=== PATIENT | male | born 1960 ===

== ENCOUNTER 2023-04-26 08:41 | Outpatient (AMB) | payer OTHER, SELFPAY ==
--- NOTE | 2023-04-26 09:06 | A.SPINEOV_ITS ---
Intake Intake Visit Reasons: replace battery of stimulator Intake Note: Mr. Haddad is here today to discuss SCS battey replacement. MRI done @ [facility] Med/brought disc. Assessment Counselor Required: No Assessment & Plan Assessment & Plan (1) Back pain: Code(s): M54.9 - Dorsalgia, unspecified Plan Mr Haddad is a 62-year-old gentleman with a history of 3 back surgeries, 2 neck surgeries and a spinal cord stimulator that was placed by [employer] in [facility] 15 years ago. He would get great relief from it but the battery started to wear out. It is no longer holding a charge it he is interested in having the battery replaced. He has chronic low back pain and that is his indication for the device. PMH: He has history of hypertension, high cholesterol, his back and neck surgeries but otherwise denies any history of heart attack, stroke, bleeding disorders, kidney disorders, infections etc. Social hx: He does not smoke Medications: Baby aspirin, lisinopril, losartan, Crestor Allergies: None Physical exam: He is awake alert oriented, normal gait and strength in the lower extremities, he has a spinal cord stimulator device in the right side of his low back next to his old incisions. It is well healed. Imaging review: CT scan done at [facility] of the lumbar spine shows his spinal cord stimulator as well as a solid fusion in the lower lumbar region with what looks like some adjacent segment disease above Impression: 62-year-old gentleman presents for evaluation and consideration of spinal cord stimulator battery replacement. He has chronic low back pain and the device works very well for him but it is losing its charge and he is unable to get much benefit out of it. When it is working it covers his back pain very well so he wants to have it replaced. I have tentatively put him on the books for June 20. We can do the surgery with some light sedation and local. The [employer] parts counter representative was here for the visit today with us and will coordinate to be in the operating room with us. I will update Dr. Lomeli. Thank you for allowing us to care for your patient. The total time spent with this visit with this patient was 45 minutes reviewing history, physical exam, CT scan imaging review, and implementation of treatment plan or further diagnostic testing Tao Lomeli MD,PhD [facility] Coding Level of Care Code New Pt Level 4 (40433) Diagnoses Back pain M54.9
== END 2023-04-26 09:32 | disposition home or self-care (01) ==
PROVIDERS: PCP Internal Medicine; Visit Provider Physician Assistant
DX: M54.9 Dorsalgia, unspecified (principal)
CPT/HCPCS: 99204

== ENCOUNTER → 2023-04-26 08:41 | Outpatient (BNVA) | payer OTHER, SELFPAY | PROVIDERS: PCP Internal Medicine; Visit Provider Physician Assistant ==

== ENCOUNTER 2023-06-20 06:04 | Day surgery (SDC) | payer OTHER, SELFPAY ==
[2023-06-18 07:24] VITALS: BMI 31.3
--- NOTE | 2023-06-19 09:03 | HO.ANESPROP2 ---
Documented by User: Monik Sykes NP 06/19/23 09:04 HPI - Anesthesia Eval Consult details Narrative: 62yo M for Spinal Stimulation Generator Change PMFSH Active Problems Active Problems: All Active Problems (Updated 06/18/23 @ 07:22 by Beverley Benton RN) Back pain (Acute) Past Medical History Medical History Carpal tunnel syndrome Trigger middle finger Obesity, Class I, BMI 30.0-34.9 (see actual BMI) Hyperlipidemia HTN (hypertension) Allergic rhinitis Acute sinusitis Deviated nasal septum Surgical History Surgical History Hx of spinal surgery Hx of cervical spine surgery Social History Social History Patient Tobacco Use Status: Never used Tobacco Use of substances other than those prescribed or required for medical reasons: No Are you DNR?: No Advance Directives: No Advance Directives Information Provided: Yes Meds Allergies Allergy/AdvReac Type Severity Reaction Status Date / Time cat dander Allergy Unknown Verified 06/20/23 06:12 mite-Dermatophagoides Allergy Runny Nose Verified 06/20/23 06:12 pteronyssinus [dust mite - ] ragweed pollen Allergy Unknown Verified 06/20/23 06:12 Home Medications Medication Instructions Recorded Confirmed Last Taken Type losartan 50 mg-hydrochlorothiazide 1 tab PO DAILY 06/18/23 06/20/23 06/19/23 History 12.5 mg tablet sildenafil 25 mg tablet 25 mg PO DAILY PRN Sexual Activity 06/18/23 06/18/23 Unknown History simvastatin 20 mg tablet 20 mg PO BEDTIME 06/18/23 06/20/23 06/19/23 History triamcinolone acetonide 0.1 % 1 appl topical BID 06/18/23 06/18/23 Unknown History topical cream Exam Height,Weight and Vital Signs: Height 5 ft 6.93 in Weight 90.6 kg Assessment and Plan Assessment Anesthesia Assessment: Chart Reviewed Documented by User: Jg May MD 06/20/23 08:07 [facility] Past Medical History Medical History Carpal tunnel syndrome Trigger middle finger Obesity, Class I, BMI 30.0-34.9 (see actual BMI) Hyperlipidemia HTN (hypertension) Allergic rhinitis Acute sinusitis Deviated nasal septum Family History Family history of problems with anesthesia: No Surgical History Surgical History Hx of spinal surgery Hx of cervical spine surgery History of Problems with Anesthesia: No Social History Social History Patient Tobacco Use Status: Never used Tobacco Use of substances other than those prescribed or required for medical reasons: No Are you DNR?: No Advance Directives: No Advance Directives Information Provided: Yes Meds Allergies Allergy/AdvReac Type Severity Reaction Status Date / Time cat dander Allergy Unknown Verified 06/20/23 06:12 mite-Dermatophagoides Allergy Runny Nose Verified 06/20/23 06:12 pteronyssinus [dust mite - ] ragweed pollen Allergy Unknown Verified 06/20/23 06:12 Home Medications Medication Instructions Recorded Confirmed Last Taken Type losartan 50 mg-hydrochlorothiazide 1 tab PO DAILY 06/18/23 06/20/23 06/19/23 History 12.5 mg tablet sildenafil 25 mg tablet 25 mg PO DAILY PRN Sexual Activity 06/18/23 06/18/23 Unknown History simvastatin 20 mg tablet 20 mg PO BEDTIME 06/18/23 06/20/23 06/19/23 History triamcinolone acetonide 0.1 % 1 appl topical BID 06/18/23 06/18/23 Unknown History topical cream Exam Airway Mallampati Class: II TM Dist: >3cm Loose/Missing/Broken Teeth: Yes Assessment and Plan Assessment Anesthesia Assessment: Anesthesia Plan Discussed Final Anesthetic Review Family History of Problems with Anesthesia: No History of Problems with Anesthesia: No NPO: Yes ASA Class: II Final Preanesthetic Review: No Changes in Pt Med Stat, Meds/Allgs Chart Reviewed, Consent Obtained/Reviewed and Anes Risks/Benef Reviewed Patient Risk: Low Procedure Risk: Low Anesthetic Plan Anesthetic Plan: MAC: Disposition: Standard PACU
[2023-06-20] VITALS (9 sets, daily range): BP systolic 118–169; BP diastolic 72–111; PULSE 56–70; RESP 14–18; TEMP 35.9–36.7; O2SAT 94–98; BMI 31.2
[2023-06-20] MEDS: Lactated Ringers 1,000 ML 100 ML IVCONT (06:19)
[2023-06-20] MEDS: Gabapentin 300 MG CAPSULE PO (06:19)
[2023-06-20] MEDS: methocarbamoL 750 MG TABLET PO (06:19)
--- NOTE | 2023-06-20 06:58 | P.HPSUR_ITS ---
Pre-Procedural Eval Section A Date of Service: 06/20/23 The patient is an INPATIENT: No Changes since office visit: No Cold of Flu in the past 2 weeks, No New Medical Problems, No Changes in Medication and No Patient answered all questions The History & Physical has been completed within 30 days and I have reviewed it.: No Section B Chief Complaint: Dorsalgia, unspecified Allergies: Allergies Allergy/AdvReac Type Severity Reaction Status Date / Time cat dander Allergy Unknown Verified 06/20/23 06:12 mite-Dermatophagoides Allergy Runny Nose Verified 06/20/23 06:12 pteronyssinus [dust mite - ] ragweed pollen Allergy Unknown Verified 06/20/23 06:12 Review of Systems Sugical H&P ROS: Negative: Constitution, Cardiovascular, Respiratory, Neurological, Psychiatric, Hem-Onc, Allergic/Immunologic, Gastrointestinal, Genitourinary, Musculoskeletal, Integumentary, Endocrine and Eye s/Ears/Nose/Throat Exam Surgical H&P Exam: Not Evaluated: HEENT, Not Evaluated: Heart, Not Evaluated: Lungs, Not Evaluated: Extremities, Not Evaluated: Abdomen, Not Evaluated: Skin and Not Evaluated: Neurological Plan Diagnosis/Plan: Unchanged I have reviewed the history and physical and performed a pertinent physical examination on my patient. No changes have occurred unless specified. Spinal cord stimulator battery replacement Time Spent With Patient Time: Total time managing care of this patient today __5__ minutes.
--- NOTE | 2023-06-20 08:11 | P.DS_ITS ---
DS: Providers Provider Date of Service: 06/20/23 Date of discharge: 06/20/23 Primary care physician: John Ness MD Admitting clinician: Quentin Lomeli DS: Diagnosis Discharge Diagnosis (1) Back pain: Status: Acute DS: Summary Time Attestation Discharge coordination time: Less than 30 minutes Quality: Safe Use of Opioids Does Pt have an Active Cancer Diagnosis on the Problem List?: No Quality: Stroke Does the patient have a stroke diagnosis?: No Physical Exam Vital Signs: Vital Signs: Last Vital Signs Temp 96.6 F L 06/20/23 06:30 Pulse 70 06/20/23 06:30 Resp 16 06/20/23 06:30 BP 165/111 H 06/20/23 06:30 Pulse Ox 97 06/20/23 06:30 O2 Del Method Room Air 06/20/23 06:30 BMI result Body Mass Index 31.2 Discharge Plan Discharge Patient Disposition: Home, Self-Care Referrals: John Ness MD [Primary Care Provider] - 1 Week Discharge Medications: New tramadol 50 mg tablet 50 mg PO Q8H PRN (Reason: pain) Qty: 10 0RF Continued sildenafil 25 mg Tablet 25 mg PO DAILY PRN (Reason: Sexual Activity) Rx Instructions: administer 30 minutes to 4 hours before activity triamcinolone acetonide 0.1 % cream 1 appl topical BID simvastatin 20 mg tablet 20 mg PO BEDTIME losartan-hydrochlorothiazide 50-12.5 mg tablet 1 tab PO DAILY Discharge Orders: Discharge Order (Routine); Ordered 06/20/23 Ordered By: Tao Morales Diet: Advance to usual diet Activity on Discharge: As tolerated Activity Restrictions/Additional Instructions: After your spinal surgery we ask you to observe the following restrictions/guidelines: Activity: It is normal to feel some discomfort as you increase your activity, but that francia l improve with time. We ask you avoid heavy lifting or acitivities that cause pain. As a general rule, 8lbs is a safe limit for lifting right after surgery. Walk as much as you feel comfortable but not to exhaustion. You will feel extra tired the first few days after surgery. Stay well hydrated. It is OK to walk up and down stairs You may return to driving when you are off narcotics (such as vicodin, oxycodone, dilaudid, etc), and you are back to normal functional capacity. If you have any concerns please check with office before driving. Return to work is specific to each patient and each surgery, so please speak with your doctor/PA at first follow up. Please bring paperwork such as FMLA at that time if you need it filled out. Medications: For optimum pain control, it is best to start with a combination of 500 mg of Tylenol every 4 hours with 600 mg of Motrin every 8 hours, and use narcotics as needed in between for breakthrough pain. We will give you a short supply of narcotics after surgery (usually one weeks worth). If you need more please call the office but do not use more than prescribed. You will need to give our office 48 hours notice if you need narcotics refilled and we do not fill narcotics on weekends or evenings. If you are on a narcotic, it is a good idea to take a stool softener such as colace or senna to avoid constipation If you take blood thinner such as aspirin, Plavix, Coumadin, Effient, Eliquis etc for conditions such as Afib, DVT, Pulmonary embolus, coronary disease, stents etc please speak with your surgeon about specific details as to when you can resume these medications. You can resume NSAIDs on post op day 1 (eg: Motrin, Naproxen, etc). Follow up: Please call the office, , after surgery to arrange a 3 week follow up for wound check. Wound Care: You may remove your dressing on the first day after surgery. You may leave open to air. Please do not remove the steri strips underneath. they will fall off on their own in one week. IT IS NORMAL FOR THE WOUND TO OOZE OR BE BLOODY FOR A FEW DAYS AFTER SURGERY. IF THIS HAPPENS JUST PLACE NEW DRESSING OVER IT TO AVOID STAINING CLOTHES. You may shower on post op day # 1 We ask that you do not let the water soak the wound. If it does get wet, just towel dry lightly. Please do not scrub your incision or place any type of chemical/ointment on the wound. No tub baths, pools or jacuzzis for one month. If you have any leaking or redness from your wound, or fevers, please call office
--- NOTE | 2023-06-20 09:58 | P.OP_ITS ---
Operative Note Operative Note Date of Service: 06/20/23 Narrative: Preop diagnosis: battery depletion from spinal cord stimulator Postop diagnosis: same Procedure: replacement battery/generator Surgeon: Qunetin Lomeli MD Assist: Tao KAY Description of procedure: This 62-year-old male presented with depletion of spinal cord stimulator battery. He was consented for a battery replacement. He was brought to the operating room where moderate sedation was applied. Prepping and draping was done followed by time-out. The previous incision over the battery was opened. The battery was removed and disconnected. A new generator was inserted and connected. Testing of the battery showed a functioning battery. The incision was closed in 2 layers. Steri-Strips were used to approximate the surgeon. A taken down was used to cover the incision. All sponge and counts were correct. Patient was transported in stable this to recovery room. This procedure was done under supervision with the physician drilling assistant perform a the majority of the procedure Anesthesia: moderate sedation and local anesthetic Estimated blood loss: minimal Disposition: Home
== END 2023-06-20 10:33 | disposition home or self-care (01) ==
PROVIDERS: PCP Internal Medicine; Visit Provider Neurological Surgery
PROC: (CPT 63685; principal; 2023-06-20 07:30)
DX: Z45.89 Encounter for adjustment and management of other implanted devices (principal); M54.50 Low back pain, unspecified; G89.29 Other chronic pain; I10 Essential (primary) hypertension; E78.00 Pure hypercholesterolemia, unspecified; Z79.82 Long term (current) use of aspirin; Z79.899 Other long term (current) drug therapy
CPT/HCPCS: 63685; C1787; C1820; J0131; J0690; J2704; J3010

== ENCOUNTER → 2023-06-20 06:04 | Outpatient (BNV) | payer OTHER, SELFPAY | PROVIDERS: PCP Internal Medicine; Visit Provider Physician Assistant | DX: M54.9 Dorsalgia, unspecified (principal); Z45.42 Encounter for adjustment and management of neurostimulator | CPT/HCPCS: 63685; 99499 ==

== ENCOUNTER 2023-07-04 08:39 | Outpatient (AMB) | payer OTHER, SELFPAY ==
--- NOTE | 2023-07-04 09:02 | HO.SPINEOV ---
Intake Intake Visit Reasons: 2w post op Intake Note: Mr. Haddad is here today for his 1st post-op visit. Supervisor [employer] Required: No Allergies cat dander Allergy (Verified 06/20/23 06:12) Unknown mite-Dermatophagoides pteronyssinus [dust mite - ] Allergy (Verified 06/20/23 06:12) Runny Nose ragweed pollen Allergy (Verified 06/20/23 06:12) Unknown Assessment & Plan Assessment & Plan (1) Back pain: Code(s): M54.9 - Dorsalgia, unspecified Plan Procedure: Spinal cord stimulator jarrod Antunez comes in today for his 1st postoperative visit. He is accompanied by a [employer] rep who has been discussing stimulator settings with him. He reports that his spinal cord stimulator is working again, and is providing significant pain relief compared to prior to surgery. He is very satisfied with the surgery and feels as though he has no concerns or complaints today. No pain reported, no numbness, no tingling, no weakness, no other neurological symptoms. Patient is able to ambulate well, rises from a seated position without difficulty. Incision site to the lateral right-sided lumbar spine is closed, well healing, with no signs of drainage. There is no need for routine follow-up for this patient, he may follow-up with us on as-needed basis. Immanuel Lomeli MD,PhD [facility] Coding Level of Care Code Global (44636) Diagnoses Back pain M54.9
== END 2023-07-04 10:08 | disposition home or self-care (01) ==
PROVIDERS: PCP Internal Medicine; Visit Provider Physician Assistant
DX: M54.9 Dorsalgia, unspecified (principal)
CPT/HCPCS: 99024

== ENCOUNTER → 2023-07-04 08:39 | Outpatient (BNVA) | payer OTHER, SELFPAY | PROVIDERS: PCP Internal Medicine; Visit Provider Physician Assistant | DX: M54.9 Dorsalgia, unspecified (principal) | CPT/HCPCS: 99212 ==